=== PATIENT | female | born 1980 | race Caucasian/White ===

== ENCOUNTER 2020-04-01 22:01 | Emergency (ER) | payer OTHER ==
[~2020-04-01] VITALS: Ht 157.5 cm; Wt 54.4 kg
--- NOTE | 2020-04-01 22:09 | NUR ---
Patient walked into ER c/o mid chest wall pain radiating to back that started 2 days [employer]. Patient describes pain as squeezing pain with eating and taking a deep breath making pain worse. Patient was seen at [facility] 2 days ago with same complaint and was prescribe tramadol.
--- NOTE | 2020-04-01 22:10 | NUR ---
Dr. Chan at bedside for MSE.
[2020-04-01] MEDS ORDERED: MAG HYDROX/AL HYDROX/SIMETH 30 ML LIQUID UDC PO ONE (22:30)
[2020-04-01] MEDS ORDERED: LIDOCAINE VISCUS 2% 15 ML UDC PO ONE (22:30)
[2020-04-01] MEDS ORDERED: MAG HYDROX/AL HYDROX/SIMETH 30 ML LIQUID UDC ONE (22:30)
[2020-04-01] MEDS ORDERED: LIDOCAINE VISCUS 2% 15 ML UDC ONE (22:30)
[2020-04-01 22:45] LABS: CREATININE 0.8 mg/dL (0.6-1.3); POTASSIUM 3.6 mmol/L (3.5-5.1)
[2020-04-01 22:53] LABS: BASOPHILS # (AUTO) 0.1 K/uL (0.0-8.0); BASOPHILS % (AUTO) 0.7 % (0.0-2.0); EOSINOPHILS # (AUTO) 0.4 K/uL (0.0-0.7); EOSINOPHILS % (AUTO) 3.7 % (0.0-7.0); HEMATOCRIT 32.4 % (31.2-41.9); HEMOGLOBIN 10.8 g/dL (10.9-14.3); LYMPHOCYTES # (AUTO) 1.9 K/uL (20.0-40.0); LYMPHOCYTES % (AUTO) 18.3 % (20.5-51.5); MEAN CORPUSCULAR HEMOGLOBIN 28.2 uug (24.7-32.8); MEAN CORPUSCULAR HGB CONC 33 g/dL (32.3-35.6); MEAN CORPUSCULAR VOLUME 84.8 fL (75.5-95.3); MONOCYTES # (AUTO) 0.7 K/uL (2.0-10.0); MONOCYTES % (AUTO) 6.8 % (0.0-11.0); NEUTROPHILS # (AUTO) 7.4 K/uL (1.8-8.9); NEUTROPHILS % (AUTO) 70.5 % (38.5-71.5); PLATELET COUNT (AUTO) 394 K/uL (179-408); RED BLOOD CELL COUNT(AUTO) 3.82 MIL/uL (3.63-4.92); WHITE BLOOD COUNT (AUTO) 10.5 K/uL (3.8-11.8)
[2020-04-01] MEDS ORDERED: CLONIDINE HCL 0.2 MG TABLET PO ONE (23:00)
[2020-04-01 23:02] VITALS: BP 177/106
[2020-04-01] MEDS ORDERED: CLONIDINE HCL 0.2 MG TABLET ONE (23:05)
[2020-04-01] MEDS ORDERED: IOHEXOL 300MG/ML 100 ML INFUS..BTL ONE (23:29)
[2020-04-01] MEDS ORDERED: SWABABLE VALVE TRANSFER SET EA MC ONE (23:29)
[2020-04-01] MEDS ORDERED: IV NORMAL SALINE 250 ML IV ONE (23:29)
--- NOTE | 2020-04-01 23:48 | NUR ---
Patient who was waiting got hysterical and wanted patient to leave ER. Patient eloped from facility. ER physician notified.
== END 2020-04-01 23:49 | disposition left against medical advice (07) ==
LOC: ER 22:02
DX: R07.2 Precordial pain (principal); I10 Essential (primary) hypertension; D64.9 Anemia, unspecified
CPT/HCPCS: 36415; 70030-TC; 71045; 83735; 85025; 93005; J7050; Q9967